=== PATIENT | male | born 1955 | race Caucasian/White ===

== ENCOUNTER 2025-03-16 07:37 | Emergency (ER) | payer MEDICARE, OTHER ==
[~2025-03-16] VITALS: Ht 177.8 cm; Wt 79.4 kg
--- NOTE | 2025-03-16 08:29 | EKG ---
[facility] Test Date: 2025-03-16 Test Time: 08:00:56 Pat Name: LUIS WESLEY Department: EDH Room: Gender: M Hospitality Job Titles: 3229 : 1955 Requested By: SCARLETT ENGLISH Order Number: [id number] Reading MD: Brad Ni Measurements Intervals [place] Rate: 66 P: 62 KS: 170 QRS: 54 QRSD: 86 T: 89 QT: 392 QTc: 411 Interpretive Statements Sinus rhythm Abnrm T, consider ischemia, anterolateral lds ST elevation, consider inferior injury No previous ECG available for comparison Electronically Signed On 03-17-2025 15:42:59 CDT by Brad Ni Please click the below link to view image of tracing.
--- NOTE | 2025-03-16 09:01 | HMCIMG ---
CT HEAD/BRAIN W/O CONTRAST HISTORY: Weakness COMPARISON: None TECHNIQUE: Multiple sequential axial images of the head were obtained from the base of the skull through vertex. Patient was not given contrast through intravenous route. FINDINGS: The ventricles and extraventricular CSF spaces are dilated consistent with cerebral atrophy. Nonspecific white matter changes seen. There is no midline shift, mass effect or herniation. No acute intracranial bleed is seen. Visualized portion of the paranasal sinuses are grossly within normal limits. IMPRESSION: 1. No acute intracranial bleed is seen. 2. Atrophy with white matter changes. CT was performed with one or more following dose reduction techniques: automated exposure control, adjustment of the mA and kv according to patient's size, or use of a iterative reconstruction technique.
--- NOTE | 2025-03-16 09:05 | HMCIMG ---
CHEST 1VW HISTORY: Chest pain COMPARISON: None FINDINGS: A frontal projection of the chest was obtained. No acute pulmonary infiltrates is seen. The heart is borderline enlarged. Degenerative changes are seen. Prominent interstitial markings are seen. No evidence of aortic calcification is seen. IMPRESSION: 1. No acute pulmonary infiltrate is seen.
[2025-03-16 09:32] LABS: APPEARANCE,URINE CLEAR (CLEAR); BILIRUBIN,URINE NEGATIVE (NEGATIVE); COLOR,URINE COLORLESS (YELLOW); GLUCOSE, URINE (UA) NEGATIVE (NEGATIVE); KETONES,URINE 5 mg/dL (NEGATIVE); LEUKOCYTE ESTERASE ,URINE NEGATIVE Leu/uL (NEGATIVE); NITRATE,URINE NEGATIVE (NEGATIVE); OCCULT BLOOD,URINE NEGATIVE (NEGATIVE); PROTEIN,URINE NEGATIVE (NEGATIVE); UROBILINOGEN,URINE 0.2 mg/dL (0.2-1.0)
[2025-03-16 09:33] LABS: ADD UA MICROSCOPIC YES
[2025-03-16 09:33] LABS: BASOPHILS # (AUTO) 0.03 K/uL (0.00-0.20); BASOPHILS % (AUTO) 0.5 % (0.0-5.0); EOSINOPHILS # (AUTO) 0.04 K/uL (0.00-0.70); EOSINOPHILS % (AUTO) 0.6 % (0.0-8.0); HEMATOCRIT 44.6 % (42-54); IMMATURE GRANULOCYTE ABSOLUTE 0.02 K/uL (0-1); LYMPHOCYTES # (AUTO) 1.5 K/uL (1.0-4.8); LYMPHOCYTES % (AUTO) 23.1 % (21.0-51.0); MEAN CORPUSCULAR HEMOGLOBIN 30.3 pg (27.0-33.0); MEAN CORPUSCULAR HGB CONC 34.8 g/dL (32.0-36.0); MEAN CORPUSCULAR VOLUME 87.3 fL (79-99); MONOCYTES # (AUTO) 0.3 K/uL (0.1-1.0); MONOCYTES % (AUTO) 5.1 % (3.0-13.0); NEUTROPHILS # (AUTO) 4.6 K/uL (1.8-7.7); NEUTROPHILS % (AUTO) 70.4 % (40.0-77.0); PLATELET COUNT (AUTO) 231 K/uL (130-400); RED BLOOD CELL COUNT(AUTO) 5.11 MIL/uL (4.50-6.20); RED CELL DISTRIBUTION WIDTH 12.7 % (11.0-15.5); WHITE BLOOD COUNT (AUTO) 6.5 K/uL (4.8-10.8)
[2025-03-16 09:35] LABS: WBC,URINE 0-1 /HPF (0-1)
[2025-03-16 09:44] LABS: INR 1.08 (0.85-1.15); PROTHROMBIN TIME 11.4 SEC (9.6-11.6)
[2025-03-16 09:46] LABS: CREATININE 0.9 mg/dL (0.5-1.3); PARTIAL THROMBOPLASTIN TIME 28.1 SEC (26.3-35.5); POTASSIUM 4.1 mmol/L (3.5-5.1)
--- NOTE | 2025-03-16 09:48 | ERN ---
General Chief Complaint: Stroke Symptoms Stated Complaint: WEAKNESS Time Seen by MD: 07:42 Source: patient History of Present Illness Initial Comments PATIENT IS A 69-YEAR-OLD MALE COMING IN TO BE EVALUATED FOR RIGHT ARM WEAKNESS RIGHT ARM TINGLING AND SLURRED SPEECH. PER PATIENT SYMPTOMS BEGAN FRIDAY. HE STATES HE WAS MOVING A LOG AND STARTED NOTICING WEAKNESS IN THE RIGHT UPPER ARM WHICH SLOWLY IMPROVED. ON FRIDAY HE STARTED HAVING SLURRED SPEECH AND STARTED NOTICING WEAKNESS IN MOUSE MOVEMENT AND COORDINATION. Allergies: Coded Allergies: No Known Drug Allergies (Unverified Allergy, Unknown, 03/16/25) Past Medical History Past Medical History: Hypertension Past Surgical History: Appendectomy Surgical History Other: VASECTOMY ROS Dictation CONSTITUTIONAL: NO CHILLS, NO FEVER, NO WEAKNESS, NO DIAPHORESIS, NO MALAISE. HEAD/FACE: NO SIGNS OF TRAUMA. EENT: NO EYE PAIN, NO BLURRED VISION, NO TEARING, NO DOUBLE VISION, NO EAR PAIN, NO EAR DISCHARGE, NO NOSE PAIN, NO NASAL CONGESTION, NO THROAT PAIN, NO THROAT SWELLING, NO MOUTH PAIN. RESPIRATORY: NO COUGH, NO ORTHOPNEA, NO SOB, NO STRIDOR, NO WHEEZING. CARDIOVASCULAR: NO CHEST PAIN, NO EDEMA, NO PALPITATIONS, NO SYNCOPE. GASTROINTESTINAL/ABDOMINAL: NO ABDOMINAL PAIN, NO CONSTIPATION, NO DIARRHEA, NO NAUSEA, NO VOMITING. GENITOURINARY: NO ABNORMAL DISCHARGE, NO DYSURIA, NO FREQUENT URINATION, NO HEMATURIA. NO COMPLAINTS OF PAIN IN THE GENITALS. MUSCULOSKELETAL: NO BACK PAIN, NO GOUT, NO JOINT PAIN, NO JOINT SWELLING, NO MUSCLE PAIN, NO MUSCLE STIFFNESS, NO NECK PAIN. INTEGUMENTARY: NO CHANGE IN COLOR, NO CHANGE IN HAIR/NAILS, NO DRYNESS, NO LESION, NO LUMPS, NO RASH. NEUROLOGICAL/PSYCH: NO ANXIETY, NOT DEPRESSED, NO EMOTIONAL PROBLEM, NO HEADACHE, NO NUMBNESS, NO PRE-EXISTING DEFICIT, NO HISTORY OF SEIZURES, NO TREMORS, NO WEAKNESS. HEMATOLOGIC/LYMPHATIC: NOT ANEMIC, NO HISTORY OF BLOOD CLOTS, NO APPARENT BLEED ING, NO BRUISING, GLANDS NOT SWOLLEN. ALL SYSTEMS NEGATIVE, EXCEPT NOTED. Physical Exam Physical Exam Dictation VITAL SIGNS: REVIEWED. GENERAL APPEARANCE: ALERT, ORIENTED X3, NO ACUTE DISTRESS, OBESE. HEAD AND FACE: NON-TRAUMATIC. EYES: PERRL, PINK CONJUNCTIVAS, EYELID NO TRAUMA, ANTERIOR CHAMBER CLEAR. EARS: PINNAS INTACT AND NO SIGNS OF TRAUMA OR ERYTHEMA. EAR CANALS CLEAR AND NO DISCHARGE. TMS NO ERYTHEMA. NOSE: NO DISCHARGE, NO BLEEDING. OROPHARYNX: MOUTH NORMAL, TEETH NO CARIES, TONGUE PINK. PHARYNX CLEAR, NO ERYTHEMA. TONSILS NO EXUDATES, NO ABSCESSES NOTED. MUCOUS MEMBRANE MOIST. NECK: SUPPLE, NON-TENDER, NO THYROMEGALY, NO MASSES, NO JVD, NO BRUITS. BREAST: DEFERRED. CHEST: NO TENDERNESS, NO CREPITUS, NO PARADOXICAL MOVEMENT, NO RETRACTIONS. LUNGS: CLEAR, WELL-VENTILATED, SYMMETRIC, NO RALES, NO WHEEZING, NO RHONCHI, NO STRIDOR, GOOD BREATH SOUNDS BILATERALLY. HEART: REGULAR RATE, REGULAR RHYTHM, NO MURMUR, NO GALLOPS. VASCULAR: NO PERIPHERAL EDEMA. ABDOMEN: SOFT, POSITIVE BOWEL SOUNDS, NONDISTENDED, NO GUARDING, NONTENDER, NO REBOUND, NO MASSES NO HEPATOMEGALY, NO SPLENOMEGALY, NO PITTS'S SIGN, NO HERNIAS. RECTAL: DEFERRED. GENITAL: DEFERRED. NEUROLOGICAL: NORMAL SPEECH, GROSS MOTOR FUNCTION INTACT, GROSS SENSORY FUNCTION INTACT. MUSCULOSKELETAL: NECK NONTENDER, FULL RANGE OF MOTION, BACK NONTENDER, FULL RANGE OF MOTION. EXTREMITIES: NONTENDER, FULL RANGE OF MOTION. RIGHT UPPER EXTREMITY NUMBNESS, WEAKNESS SKIN: COLOR PINK, DRY, NO TURGOR, NO RASH, NO LACERATIONS, NO ABRASIONS, NO CONTUSIONS. LYMPHATICS: DEFERRED. Stroke Patient?: No Is Patient Candidate for t-PA?: No Did the Patient Receive t-PA?: No Contraindication for t-PA?: Medical Contraindication NIH STROKE SCALE: NIH STROKE SCALE Response (Comments) Value Level of Consciousness Alert 0 Ask patient month and their age Answers both correct 0 Command to open eyes, make fist and let go Obeys both correct 0 Best gaze (horizontal eye movement) Normal 0 Visual Field Testing No Visual Field Loss 0 Facial Paresis Normal / Symmetrical 0 Motor Function - Left Arm Normal 0 Motor Function - Right Arm Normal 0 Motor Function - Left Leg Normal 0 Motor Function - Right Leg Normal 0 Limb Ataxia No Ataxia 0 Sensory-pin prick to arms, legs, trunk and face Mild to Moderate Decrease 1 Best Language (describe picture, name items and read) Mild to Mod. Aphasia 1 Dysarthria (read several words) Normal Articulation 0 Extinction and Inattention Normal 0 Total 2 Results Laboratory and Microbiology Lab and Micro Result Laboratory Tests Test 03/16/25 07:45 03/16/25 09:17 03/16/25 09:29 Whole Blood Glucose 101 MG/DL (70-110) Urine Color COLORLESS (YELLOW) Urine Appearance CLEAR (CLEAR) Urine pH 6.0 (5.0-8.0) Urine Specific [place] 1.004 (1.001-1.031) Urine Protein NEGATIVE mg/dL (NEGATIVE) Urine Glucose (UA) NEGATIVE mg/dL (NEGATIVE) Urine Ketones 5 mg/dL (NEGATIVE) H Urine Occult Blood NEGATIVE (NEGATIVE) Urine Nitrate NEGATIVE (NEGATIVE) Urine Bilirubin NEGATIVE mg/dL (NEGATIVE) Urine Urobilinogen 0.2 mg/dL (0.2-1.0) Urine Leukocyte Esterase NEGATIVE Carmita/uL Urine RBC None /HPF (0-1) Urine WBC 0-1 /HPF (0-1) Urine Bacteria None /HPF (None Seen) White Blood Count 6.5 K/uL (4.8-10.8) Red Blood Count 5.11 MIL/uL (4.50-6.20) Hemoglobin 15.5 g/dL (14.0-18.0) Hematocrit 44.6 % (42-54) Mean Corpuscular Volume 87.3 fL (79-99) Mean Corpuscular Hemoglobin 30.3 pg (27.0-33.0) Mean Corpuscular Hemoglobin Concent 34.8 g/dL (32.0-36.0) Red Cell Distribution Width 12.7 % (11.0-15.5) Platelet Count 231 K/uL (130-400) Mean Platelet Volume 9.4 fL (7.5-10.5) Immature Granulocyte % (Auto) 0.3 % (0-1) Neutrophils (%) (Auto) 70.4 % (40.0-77.0) Lymphocytes (%) (Auto) 23.1 % (21.0-51.0) Monocytes (%) (Auto) 5.1 % (3.0-13.0) Eosinophils (%) (Auto) 0.6 % (0.0-8.0) Basophils (%) (Auto) 0.5 % (0.0-5.0) Neutrophils # (Auto) 4.6 K/uL (1.8-7.7) Lymphocytes # (Auto) 1.5 K/uL (1.0-4.8) Monocytes # (Auto) 0.3 K/uL (0.1-1.0) Eosinophils # (Auto) 0.04 K/uL (0.00-0.70) Basophils # (Auto) 0.03 K/uL (0.00-0.20) Absolute Immature Granulocyte (auto 0.02 K/uL (0-1) Nucleated Red Blood Cells 0.0 % (0.0-0.19) Prothrombin Time 11.4 SEC (9.6-11.6) Prothromb Time International Ratio 1.08 (0.85-1.15) Activated Partial Thromboplast Time 28.1 SEC (26.3-35.5) Sodium Level 140 mmol/L (136-145) Potassium Level 4.1 mmol/L (3.5-5.1) Chloride Level 104 mmol/L (101-111) Carbon Dioxide Level 27 mmol/L (21-32) Blood Urea Nitrogen 10 mg/dL (7-18) Creatinine 0.9 mg/dL (0.5-1.3) Glomerular Filtration Rate Calc 92 mL/min (>90) Random Glucose 100 mg/dL (70-105) Total Calcium 9.0 mg/dL (8.5-10.1) Total Creatine Kinase 61 U/L (21-232) Troponin I High Sensitivity 22 ng/L (4-75) B-Type Natriuretic Peptide 16 pg/mL (0-100) LDL Cholesterol 180 mg/dL (0-99) H MDM MDM: DIFFERENTIAL DIAGNOSIS: TIA, CVA, RATIONALE: TESTS CONSIDERED AND ORDERED SECONDARY TO SHARED DECISION MAKING INCLUDE: PREVIOUS OUTSIDE RECORDS REVIEWED: OLD ER VISITS. RISK OF COMPLICATION AND/OR MORBIDITY OR MORTALITY OF PATIENT MANAGEMENT: NONE MEDICATIONS-PER MEDICATION RECONCILIATION NEED FOR HOSPITALIZATION: PATIENT DOES NOT MEET CRITERIA FOR HOSPITALIZATION. NEED FOR EMERGENCY MAJOR/MINOR SURGERY: NO THERE ARE NO SOCIAL CONCERNS WITH THIS PATIENT. PRESCRIPTION DRUG MANAGEMENT PRESCRIPTIONS WILL INCLUDE SYMPTOMATIC CARE PATIENT'S PRIOR EXTERNAL MEDICAL RECORDS FROM OTHER ER VISITS WERE REVIEWED BY ME INDICATED. PRIOR TESTING AND RESULTS FROM PREVIOUS VISITS WERE REVIEWED. PRIOR TESTS WERE TAKEN INTO ACCOUNT WITH MEDICAL DECISION MAKING AND RESOURCE UTILIZATION, INDEPENDENT HISTORIAN/HISTORIANS WERE USED TO OBTAIN COMPLETE MEDIC AL HISTORY. I INDEPENDENTLY INTERPRETED THE TEST THAT WERE PERFORMED, RESULTS WERE REVIEWED BY ME AND CONSIDERED FINDINGS ON RADIOLOGY IF ORDERED. MEDICAL MANAGEMENT AND EXAMINATION INTERPRETATION DISCUSSIONS WERE HAD BY ME WITH OTHER QUALIFIED HEALTHCARE PROFESSIONALS INDICATED FOR THE PATIENT'S CARE. Patient was evaluated by teleneurologist due to the presentation he initially came in with. Patient will be transferred to [facility] under the care of Dr. Frank for ongoing evaluation of CVA versus TIA. ED Course Orders Procedure Category Date Status Time Cbc With Differential LAB 03/16/25 Complete 07:42 Prothrombin Time With LAB 03/16/25 Complete INR 07:42 Partial LAB 03/16/25 Complete Thromboplastin Time 07:42 Ct Head/Brain W/O CT 03/16/25 Resulted Contrast 07:42 Chest 1vw RAD 03/16/25 Resulted 07:42 12 Lead Ekg Tracing- EKG 03/16/25 Complete Technical 07:42 Creatine Kinase, Total LAB 03/16/25 Complete 07:42 Ldl Direct LAB 03/16/25 Complete 07:42 Troponin I High LAB 03/16/25 Complete Sensitivity 07:42 Urinalysis Profile LAB 03/16/25 Complete 07:42 B-Type Natriuretic LAB 03/16/25 Complete Peptide 07:42 Bedside Glucose CPOE 03/16/25 Transmitted Fingerstick 07:42 Basic Metabolic Panel LAB 03/16/25 Complete 07:42 Vital Signs Date Time Temp Pulse Resp B/P (MAP) Pulse Ox O2 Delivery O2 Flow Rate FiO2 03/16/25 07:47 98.6 74 18 134/70 98 Room Air* 0 03/16/25 07:47 98.2 74 18 134/70 98 Room Air* 0 03/16/25 07:42 98.2 74 18 98 Room Air DX & DISP Disposition: Transfer Decision to Admit Time: 10:50 Departure Impression: Primary Impression: CVA (cerebral vascular accident) Additional Impression: TIA (transient ischemic attack) Condition: Stable Referrals: SELF,REFERRAL (PCP) SCARLETT ENGLISH MD March 16, 2025 09:47
--- NOTE | 2025-03-16 09:50 | NUR ---
soc neuro consult in room.
[2025-03-16 09:54] LABS: B-TYPE NATRIURETIC PEPTIDE 16 pg/mL (0-100)
--- NOTE | 2025-03-16 10:00 | NUR ---
TRANSFER REQUEST FOR NEUROLOGY SERVICE PER DR ENGLISH . NGHAI MENDOZA
[2025-03-16 10:11] VITALS: BP 148/71; PULSE 65; RESP 17; TEMP 98.2; O2SAT 96
--- NOTE | 2025-03-16 10:30 | NUR ---
TRANSFER , CALL PLACED TO [facility] [phone] SPOKE WITH SVETLANA INFORMATION PROVIDED AND WILL CALL BACK. NGHIA MENDOZA
--- NOTE | 2025-03-16 11:55 | NUR ---
TRANSFER CALL PLACED TO [facility] FOR FOLLOW UP SPOKE WITH SVETLANA AND PT WAS ACCEPTED AT 1049 BUT WAS PENDING THE BED. ACCEPTANCE UNDER DR MARY GRACE CRAMER AT 1049 TO ROOM 4240 AND PRIMARY NURSE TO CALL REPORT TO [phone] AND EMS WHEN READY. PT AND SPOUSE MADE AWARE BOTH VERBLIZED UNDERSTANDING. NGHIA MENDOZA
== END 2025-03-16 12:57 | disposition short-term general hospital (02) ==
LOC: EDH 07:37
DX: I63.9 Cerebral infarction, unspecified (principal); G45.9 Transient cerebral ischemic attack, unspecified; I10 Essential (primary) hypertension; Z90.49 Acquired absence of other specified parts of digestive tract; Z98.890 Other specified postprocedural states
CPT/HCPCS: 36415; 70450; 71045; 80048; 81001; 82550; 82948; 83721; 83880; 84484; 85025; 85610; 85730; 93005; 99285